=== PATIENT | female | born 1945 | race Caucasian/White ===

== ENCOUNTER → 2016-04-08 | Outpatient (CLI) | payer MEDICARE, OTHER | LOC: LAB 10:19 | PROVIDERS: ATTEND Internal Medicine | DX: H34.10 Central retinal artery occlusion, unspecified eye (principal) | CPT/HCPCS: 36415; 85610 ==

== ENCOUNTER → 2016-05-06 | Outpatient (CLI) | payer MEDICARE, OTHER | LOC: LAB 09:46 | PROVIDERS: ATTEND Internal Medicine | DX: H34.10 Central retinal artery occlusion, unspecified eye (principal) | CPT/HCPCS: 36415; 85610 ==

== ENCOUNTER → 2016-06-03 | Outpatient (CLI) | payer MEDICARE, OTHER | LOC: LAB 09:53 | PROVIDERS: ATTEND Internal Medicine | DX: H34.10 Central retinal artery occlusion, unspecified eye (principal) | CPT/HCPCS: 36415; 85610 ==

== ENCOUNTER → 2016-07-15 | Outpatient (CLI) | payer MEDICARE, OTHER | LOC: LAB 08:21 | PROVIDERS: ATTEND Internal Medicine | DX: H34.10 Central retinal artery occlusion, unspecified eye (principal) | CPT/HCPCS: 36415; 85610 ==